=== PATIENT | female | born 1950 | race Caucasian/White ===

== ENCOUNTER 2016-07-13 17:13 | Emergency (ER) | payer OTHER ==
[2016-07-13] MEDS ORDERED: IOPAMIDOL 370 (76%) 100 ML VIAL IV ONE (17:14)
[2016-07-13] MEDS ORDERED: HYDROMORPHONE HCL 1 MG/ML SYRINGE ONE (17:44)
[2016-07-13] MEDS ORDERED: SODIUM CHLORIDE 0.9% 1,000 ML ONE ×2 (17:44→18:49)
[2016-07-13] MEDS ORDERED: ONDANSETRON 4 MG/2ML 2 ML VIAL ONE (17:44)
[2016-07-13 18:02] LABS: ABSOLUTE NEUTROPHIL COUNT 18.4 K/mm3 (1.8-7.7); BASO # 0.1 K/mm3 (0.0-0.2); BASO % 0.2 % (0.2-1.0); HEMATOCRIT 40.2 % (37.0-47.0); HEMOGLOBIN 13.3 gm/l (12.0-16.0); IMM NEUT # 0.1 K/mm3 (0-0.2); IMM NEUT% 0.7 % (0-1); LYMPH # 0.7 (1.0-4.8); LYMPH % 3.2 % (15-45); MEAN CELL VOLUME 87.8 fl (81.0-99.0); MEAN CORPUSCULAR HGB CONC 33.1 g/dl (33.0-37.0); MEAN PLATELET VOLUME 10.8 fl (7.4-10.4); MONO # 0.9 (0.0-0.8); MONO % 4.4 % (4-12); NEUT % 91.5 % (43-75); PLATELET COUNT 285 K/mm3 (130-400); RED CELL DISTRIBUTION WIDTH 14.3 % (11.5-14.5)
[2016-07-13 18:20] LABS: ALB/GLOB RATIO 1.6 (>1.0); ALBUMIN 4.4 gm/dL (3.5-5.7); CALCIUM 9.8 mg/dL (8.6-10.3)
[2016-07-13] MEDS ORDERED: PIPERACILLIN-TAZO PREMIX BAG 50 ML IV ONE (18:26)
--- NOTE | 2016-07-13 19:32 | CT ---
Exam Type: ABD/PELVIS W/ CON Date and Time: 07/13/2016 5:47 PM Clinical information: Hematochezia for 12 hours. Comparison: CT abdomen pelvis with contrast 04/13/2011 Technique: Contiguous axial 4 mm images were obtained from the lung bases through the pelvis after the uneventful IV administration of 100 cc of [id number]. Sagittal and coronal reformations with high resolution lung algorithm images were also obtained at this time. CT DI: 7.1 DLP 328.8 FINDINGS: Lung base :No abnormality is identified at the lung bases. Visualized heart:There is no pericardial effusion. LIVER: Mild diffuse fatty infiltration. BILE DUCTS: Minimal intrahepatic duct dilation GALLBLADDER: Surgically absent PANCREAS: Calcification is present likely relating to prior granulomatous disease. SPLEEN: within normal limits. ADRENALS: Increasing nodularity is noted to the anterior limb of the left adrenal gland. This now measures 2.4 x 0.9 cm on axial image 22. Dedicated adrenal CT would be recommended for further assessment. KIDNEYS: within normal limits. Stomach and small BOWEL: Normal caliber. Large bowel: Air and stool are noted within the large bowel. Much of the large bowel is decompressed limiting assessment. There may be submucosal enhancement and thickening to the sigmoid colon versus underdistention. Findings could relate to colitis of infectious, ischemic or inflammatory ideology. Diverticulosis is present without definite findings of diverticulitis or abscess formation. Appendix is normal. LYMPH NODES: No enlarged mesenteric lymph nodes. PERITONEUM: no ascites or free air, no fluid collection. VESSELS: Moderate to severe atherosclerotic disease. RETROPERITONEUM: within normal limits. ABDOMINAL WALL: within normal limits. Bladder: Decompressed but otherwise unremarkable. Uterus and adnexa: Multiple cysts are present on the left. Otherwise unremarkable.. BONES: The patient's severe levo rotatory scoliosis is identified with associated degenerative change. No lytic or sclerotic lesions. There may be grade 1 anterolisthesis of L5 on S1. IMPRESSION: Possible thickening of the sigmoid colon versus underdistention. There is suggestion of some mucosal enhancement. Findings are worrisome for colitis of infectious, ischemic or idiopathic etiology. Diverticulosis is noted without evidence of diverticulitis or abscess formation. Increasing nodularity to the anterior limb of the left adrenal gland. Dedicated adrenal CT is recommended. Other incidental findings as above. Findings were called to Dr. Mejias at approximately 1925 hours on 07/13/2016.
[2016-07-13 20:45] LABS: BAND 0 % (0-10); EOSINOPHIL 0 % (1-3); LYMPHOCYTE 2 % (15-45); MONOCYTE 8 % (4-12); NEUTROPHILS 89 % (43-75); TOTAL CELLS COUNTED 100
[2016-07-13 20:46] LABS: BASOPHIL 1 % (0-1); PLATELET ESTIMATE NORMAL (NORMAL)
== END 2016-07-13 20:32 | disposition short-term general hospital (02) ==
LOC: ED 17:13
DX: K52.9 Noninfective gastroenteritis and colitis, unspecified (principal); R65.20 Severe sepsis without septic shock; K92.1 Melena